=== PATIENT | male | born 1990 | race Caucasian/White ===

== ENCOUNTER 2020-06-08 13:27 | Outpatient (CLI) | payer OTHER ==
[2020-06-08] MEDS ORDERED: OMNIPAQUE 350 MG/ML, 100ML BOTTLE ONE (13:45)
== END 2020-06-08 23:59 | disposition home or self-care (01) ==
LOC: CFH 13:27
PROVIDERS: ATTEND Internal Medicine
DX: R19.7 Diarrhea, unspecified (principal); R11.2 Nausea with vomiting, unspecified; R12 Heartburn
CPT/HCPCS: 74177; Q9967